=== PATIENT | female | born 2000 | race Caucasian/White ===

== ENCOUNTER → 2024-12-23 | Outpatient (CLI) | payer MEDICAID ==
[2024-12-23 15:32] LABS: ALT 12 U/L (8-44); AST 17 U/L (13-35); Albumin 4.3 g/dL (3.8-4.9); Albumin/Globulin Ratio 1.59 Ratio (1.60-3.17); Alkaline Phosphatase 111 U/L (41-126); Anion Gap 10.40 mmol/L (4.00-12.00); BUN/Creat Ratio 14.67 Ratio (12.00-20.00); Blood Urea Nitrogen 8.8 mg/dL (9.0-27.0); Calcium 9.4 mg/dL (8.7-10.3); Carbon Dioxide 25.6 mmol/L (21.6-31.8); Chloride 103 mmol/L (96-109); Globulin 2.7 g/dL (1.6-3.3); Glucose 91 mg/dL (70-110); Potassium 4.5 mmol/L (3.5-5.5); Sodium 139 mmol/L (135-145); T4, Free (Free Thyroxine) 1.28 ng/dL (0.80-1.80); Total Protein 7.0 g/dL (6.2-8.2)
[2024-12-23 15:42] LABS: HCT 40.2 % (37.2-46.3); HGB 12.7 g/dL (12.0-15.0); MCH 29.3 pg (27.0-32.0); MCHC 31.6 g/dL (32.0-37.0); MCV 92.8 FL (80.0-97.0); NRBC Per 100 WBC 0 X 10*3/uL (0.00-0.01); Platelet Count 306 X 10*3/uL (140-440); RBC 4.33 X 10*6/uL (4.10-5.20); RDW 13.1 % (11.5-14.5); WBC 7.83 X 10*3/uL (4.50-10.00)
== END | disposition home or self-care (01) ==
LOC: LABWHC1 11:20
PROVIDERS: ATTEND Family Medicine
DX: E03.9 Hypothyroidism, unspecified (principal); E06.3 Autoimmune thyroiditis; R53.83 Other fatigue
CPT/HCPCS: 36415; 80053; 84439; 84443; 84480; 85027